=== PATIENT | female | born 1990 | race Asian ===

== ENCOUNTER 2021-10-15 09:02 | Outpatient (CLI) | payer BC | END 2021-10-15 09:03 | disposition home or self-care (01) | LOC: CSHWCC 09:02 | PROVIDERS: ATTEND Nurse Practitioner Family | DX: T22.211D Burn of second degree of right forearm, subsequent encounter (principal) | CPT/HCPCS: 16020; 99203; G0463 ==

== ENCOUNTER 2021-10-22 10:10 | Outpatient (CLI) | payer BC | END 2021-10-22 10:11 | disposition home or self-care (01) | LOC: CSHWCC 10:10 | PROVIDERS: ATTEND Nurse Practitioner Family | DX: T22.211D Burn of second degree of right forearm, subsequent encounter (principal) | CPT/HCPCS: 99212; G0463 ==